=== PATIENT | female | born 1935 | race Asian ===

== ENCOUNTER 2017-03-12 15:35 | Emergency (ER) | payer OTHER ==
[~2017-03-12] VITALS: Ht 157.5 cm; Wt 76.0 kg
[2017-03-12 15:39] VITALS: Ht 157.5 cm; Wt 76.0 kg
[2017-03-12] MEDS ORDERED: SOD CHLORIDE 0.9% 500 ML IV STA (16:00)
[2017-03-12] MEDS ORDERED: ALBUTEROL 0.5% (NEB) 2.5 MG/0.5 ML AMP INH STA (16:00)
[2017-03-12] MEDS ORDERED: IPRATROPIUM (NEB) 0.5 MG/2.5 ML AMP INH STA (16:00)
[2017-03-12] MEDS ORDERED: KETOROLAC 15 MG INJ IV STA (16:00)
[2017-03-12 16:11] VITALS: BP 163/69; PULSE 72; RESP 18
[2017-03-12] MEDS ORDERED: ASPI-664 PO (16:24)
[2017-03-12] MEDS ORDERED: METF500T4 PO (16:24)
[2017-03-12] MEDS ORDERED: ALEN70TA30 PO (16:24)
[2017-03-12] MEDS ORDERED: ATEN50TA PO (16:25)
[2017-03-12] MEDS ORDERED: VALS160T20 PO (16:26)
[2017-03-12] MEDS ORDERED: GABA-526 PO (16:27)
[2017-03-12] MEDS ORDERED: GABA100C14 PO (16:27)
[2017-03-12] MEDS ORDERED: OMEP40CA6 PO (16:28)
[2017-03-12] MEDS ORDERED: CLOB60CR2 TOP (16:34)
[2017-03-12] MEDS ORDERED: BETA50CR5 TP (16:36)
[2017-03-12] MEDS ORDERED: PLAN450C PO (16:39)
[2017-03-12 16:47] LABS: ADD SCAN DIFF NO
[2017-03-12 16:57] LABS: BASOPHIL # 0.1 10^3/ul (0.0-0.1); BASOPHILS % 1.7 % (0.0-2.0); EOSINOPHILS # 0.4 10^3/ul (0.0-0.5); EOSINOPHILS % 7.1 % (0.0-7.0); HEMATOCRIT 36.4 % (37.0-47.0); HEMOGLOBIN 11.9 g/dl (12.0-16.0); LYMPHOCYTES # 1.2 10^3/ul (0.8-2.9); LYMPHOCYTES % 22.6 % (15.0-51.0); MEAN CORPUSCULAR HEMOGLOBIN 30.1 pg (29.0-33.0); MEAN CORPUSCULAR HGB CONC 32.7 g/dl (32.0-37.0); MEAN CORPUSCULAR VOLUME 91.9 fl (82.0-101.0); MEAN PLATELET VOLUME 11.2 fl (7.4-10.4); MONOCYTE # 0.6 10^3/ul (0.3-0.9); MONOCYTES % 11.2 % (0.0-11.0); NEUTROPHIL # 3.1 10^3/ul (1.6-7.5); NEUTROPHILS % 57.2 % (39.0-77.0); PLATELET COUNT 199 10^3/UL (140-415); RED BLOOD COUNT 3.96 10^6/ul (4.20-5.40); RED CELL DISTRIBUTION WIDTH 12.8 % (11.5-14.5); WHITE BLOOD COUNT 5.4 10^3/ul (4.8-10.8)
[2017-03-12 17:02] LABS: ALBUMIN 4.8 g/dl (3.3-4.9)
[2017-03-12 17:03] LABS: CHLORIDE 101 mmol/L (97-110); POTASSIUM 3.8 mmol/L (3.5-5.1); SODIUM 142 mmol/L (135-144)
--- NOTE | 2017-03-12 17:04 | RADRPT ---
PROCEDURE: XR Chest. CLINICAL INDICATION: Chest pain TECHNIQUE: AP view of the chest was performed. COMPARISON: November 25, 2013 FINDINGS: The cardiomediastinal silhouette is within normal limits. The lungs are clear. No signs of pleural f luid or pneumothorax are seen. The osseous structures and soft tissues are unremarkable. IMPRESSION: No evidence for active cardiopulmonary disease. No interval change. RPTAT: QQ .Ellen Guillermo MD, MD Date Time Electronically viewed and signed by .Ellen Guillermo MD, on 03/12/2017 17:04 .F/
[2017-03-12 17:05] LABS: ANION GAP 18 (8-16); ASPARTATE AMINO TRANSFERASE 33 IU/L (15-46); BILIRUBIN,INDIRECT 0.2 mg/dl (0-1.1); BILIRUBIN,TOTAL 0.2 mg/dl (0.2-1.3); CARBON DIOXIDE 27 mmol/L (21-31); CREATININE 1.17 mg/dl (0.44-1.00)
[2017-03-12 17:06] LABS: ALANINE AMINOTRANSFERASE 28 IU/L (13-69); ALKALINE PHOSPHATASE 66 IU/L (42-121); BLOOD UREA NITROGEN 25 mg/dl (7-20); CALCIUM 9.6 mg/dl (8.4-10.2); GLUCOSE 166 mg/dl (70-220); TOTAL PROTEIN 8.8 g/dl (6.1-8.1)
[2017-03-12 17:26] LABS: TROPONIN-I < 0.012 ng/ml (0.00-0.12)
--- NOTE | 2017-03-12 17:36 | ERD ---
ER Documentation Chief Complaint Date/Time DATE: 03/12/17 TIME: 17:34 Chief Complaint "PHLEM AND CONGESTION FOR PAST FEW DAYS" HPI 81-year-old woman with a history of asthma presents with cough and congestion 2 -3 days. She denies fevers or chills, no calf or leg swelling, no chest pain, no vomiting or diarrhea. Patient denies recent antibiotic use or recent travel. ROS All systems reviewed and are negative except as per history of present illness. Medications Home Meds Active Scripts Ibuprofen* (Motrin*) 400 Mg Tab, 400 MG PO Q8 for PAIN AND/OR INFLAMMATION, #30 TAB Prov:GILBERTO ZURITA MD 03/12/17 Azithromycin* (Zithromax*) 500 Mg Tablet, 500 MG PO DAILY for 5 Days, TAB Prov:GILBERTO ZURITA MD 03/12/17 Albuterol Sulfate* (Proair HFA*) 8.5 Gm Hfa.aer.ad, 2 PUFF INH Q6H Y for WHEEZING AND SOB, #1 INHALER Prov:GILBERTO ZURITA MD 03/12/17 Reported Medications Plant Stanol Zuleyma (CHOLEST OFF PLUS) 450 Mg Capsule, 450 MG PO DAILY, CAP 03/12/17 Betamet Diprop/Prop Gly (Betamethasone Dp 0.05% Crm) 50 Gm Cream.gm., 50 GM TP DAILY 03/12/17 Clobetasol Propionate* (Clobetasol Propionate*) 60 Gm Cream.gm., 1 APPLIC TOP BID, #1 TUB 03/12/17 Omeprazole* (Omeprazole*) 40 Mg Capsule., 40 MG PO DAILY, #30 CAP 03/12/17 Gabapentin* (Gabapentin*) 600 Mg Tablet, 600 MG PO QPM, #30 TAB 03/12/17 Gabapentin* (Gabapentin*) 100 Mg Capsule, 100 MG PO QAM, #30 CAP 03/12/17 Valsartan* (Diovan*) 160 Mg Tablet, 160 MG PO QPM, TAB 03/12/17 Atenolol* (Atenolol*) 50 Mg Tablet, 50 MG PO QAM, #30 TAB 03/12/17 Metformin* (Glucophage*) 500 Mg Tab, 500 MG PO WITH LUNCH DINNER, #60 TAB 03/12/17 Aspirin* (Aspirin* EC) 81 Mg Tablet.dr, 81 MG PO DAILY, TAB 03/12/17 Alendronate Sodium* (Fosamax*) 70 Mg Tablet, 70 MG PO Q7D, #4 TAB 03/12/17 Allergies Allergies: Coded Allergies: No Known Allergy (Unverified , 03/12/17) PMhx/Soc Diabetes mellitus, hypertension, hypercholesterolemia Hx Psychiatric Problems: No Hx Miscellaneous Medical Probl: No Hx Alcohol Use: No Hx Substance Use: No Hx Tobacco Use: No Smoking Status: Never smoker FmHx Family History: No diabetes Physical Exam Vitals Per nurse's notes. Physical Exam GENERAL: Well-developed, well-nourished, well-hydrated, in no apparent distress , afebrile HEENT: Moist mucous membranes, pink conjunctiva, no cervical spine tenderness or step-off deformities, no goiter, no jaundice or icterus, extraocular movements intact without pain. No submandibular induration, and no pharyngeal erythema NEURO: Alert and oriented 3, cranial nerves II through XII intact bilaterally, pupils equal round reactive to light, no focal deficits or facial asymmetry, sensation intact distally Strength 5/5 in upper and lower extremities bilaterally CARDIAC: Regular rate and rhythm, no murmurs rubs or gallops LUNGS: Scattered wheezes bilaterally, no crackles or stridor ABDOMEN: Soft nontender, no guarding, no rigidity, no rebound, no psoas sign no obturator sign. SKIN: Warm and dry to touch, no abrasions, contusions, or hematomas, no lacerations, no ecchymosis, no target lesions, and without ulcers EXTREMITIES: No clubbing cyanosis or edema, calves are bilaterally symmetrical, no Homans sign, no popliteal cord sign. Distal pulses equal and bilateral PSYCH: Normal affect without agitation or irritability Results 24 hrs Laboratory Tests Test 03/12/17 16:15 White Blood Count 5.410^3/ul Red Blood Count 3.9610^6/ul Hemoglobin 11.9g/dl Hematocrit 36.4% Mean Corpuscular Volume 91.9fl Mean Corpuscular Hemoglobin 30.1pg Mean Corpuscular Hemoglobin Concent 32.7g/dl Red Cell Distribution Width 12.8% Platelet Count 75850^3/UL Mean Platelet Volume 11.2fl Neutrophils % 57.2% Lymphocytes % 22.6% Monocytes % 11.2% Eosinophils % 7.1% Basophils % 1.7% Nucleated Red Blood Cells % 0.0/100WBC Neutrophils # 3.110^3/ul Lymphocytes # 1.210^3/ul Monocytes # 0.610^3/ul Eosinophils # 0.410^3/ul Basophils # 0.110^3/ul Nucleated Red Blood Cells # 0.010^3/ul Sodium Level 142mmol/L Potassium Level 3.8mmol/L Chloride Level 101mmol/L Carbon Dioxide Level 27mmol/L Anion Gap 18 Blood Urea Nitrogen 25mg/dl Creatinine 1.17mg/dl Glucose Level 166mg/dl Calcium Level 9.6mg/dl Total Bilirubin 0.2mg/dl Direct Bilirubin 0.00mg/dl Indirect Bilirubin 0.2mg/dl Aspartate Amino Transf (AST/SGOT) 33IU/L Alanine Aminotransferase (ALT/SGPT) 28IU/L Alkaline Phosphatase 66IU/L Troponin I < 0.012ng/ml Total Protein 8.8g/dl Albumin 4.8g/dl Globulin 4.00g/dl Albumin/Globulin Ratio 1.20 Lipase 281U/L Current Medications Medications (Trade) Dose Ordered Sig/Mariel Route PRN Reason Start Time Stop Time Status Last Admin Dose Admin Albuterol (Proventil 0.5% (Neb)) 10 mg ONCE STAT INH 03/12/17 16:00 03/12/17 16:01 DC 03/12/17 16:09 Ipratropium [place] 1 mg 1 mg ONCE STAT INH 03/12/17 16:00 03/12/17 16:01 DC 03/12/17 16:09 Sodium Chloride (NS) 500 ml @ 500 mls/hr Q1H STAT IV 03/12/17 16:00 03/12/17 16:59 DC 03/12/17 16:32 Ketorolac Tromethamine (Toradol) 15 mg ONCE STAT IV 03/12/17 16:00 03/12/17 16:01 DC 03/12/17 16:32 Procedures/[facility] IV line was established patient was placed on trim setter rhythm strip revealed a sinus rhythm at about 70 bpm with upright P and T waves. Patient was afebrile. EKG performed, read by me: 73 bpm, normal sinus rhythm, normal axis, no acute ST segment changes, narrow QRS complex, with good R-wave progression in precordial leads. One AP view of the chest performed, read by me reveals no acute infiltrates, normal mediastinum, sharp costophrenic and cardiac borders, no air under the diaphragm. Otherwise unremarkable chest x-ray. I administered 1 L normal saline intravenously, Toradol 15 mg IV with resolution of symptoms. She was also given albuterol 10 mg via nebulizer and ipratropium 1 mg via nebulizer. CBC and electrolytes were normal, troponin was negative, liver function tests were unremarkable. Differential diagnoses considered, included but not limited to acute coronary syndrome, pulmonary embolism, aortic dissection, abdominal aortic aneurysm, sepsis, stroke, meningitis, encephalitis, pneumonia, appendicitis, cholecystitis , bowel obstruction, pyelonephritis, nephrolithiasis, cystitis, as well as metabolic, hematologic, and electrolyte abnormalities. As well as abscess, cellulitis, fractures, and dislocations. Patient feels much better at this time, and vital signs are normal, symptoms have improved. I did give strict instructions to return to the ED if symptoms continue or worsen, patient will otherwise follow-up with primary care physician. Patient understood instructions and agreed to plan. Disclaimer: Inadvertent spelling or grammatical errors are likely due to EHR/ dictation software use and do not reflect on the overall quality of patient care. Departure Diagnosis: Primary Impression: Acute bronchitis Bronchitis organism: unspecified organism Qualified Code: J20.9 - Acute bronchitis, unspecified organism Condition: Good GILBERTO ZURITA MD March 12, 2017 17:36
[2017-03-12] MEDS ORDERED: ALBU8.5H3 INH (17:37)
[2017-03-12] MEDS ORDERED: AZIT500T3 PO (17:37)
[2017-03-12] MEDS ORDERED: IBUP400T22 PO (17:37)
== END 2017-03-12 18:18 | disposition home or self-care (01) ==
LOC: E/R 15:35
DX: J20.9 Acute bronchitis, unspecified (principal); I10 Essential (primary) hypertension; E11.9 Type 2 diabetes mellitus without complications; Z79.82 Long term (current) use of aspirin; Z79.84 Long term (current) use of oral hypoglycemic drugs
CPT/HCPCS: 71010; 80053; 83690; 84484; 85025; 87040; 93005; 94644; J1885; J7040; 36415; 96374

== ENCOUNTER 2018-05-05 21:51 | Emergency (ER) | END 2018-05-06 01:30 | disposition home or self-care (01) ==

== ENCOUNTER 2018-05-13 16:38 | Emergency (ER) | END 2018-05-13 22:20 | disposition home or self-care (01) ==

== ENCOUNTER 2018-05-16 16:27 | Emergency (ER) | END 2018-05-16 19:40 | disposition home or self-care (01) ==